=== PATIENT | female | born 1995 | race Caucasian/White ===

== ENCOUNTER → 2018-04-08 11:55 | Outpatient (CLI) | payer OTHER, SELFPAY ==
--- NOTE | 2018-04-08 | DI.RAD.S_ITS ---
PROCEDURE: XR HUMERUS LT 2V INDICATIONS: NEXPLANON JUE INSERTED, NON PALPABLE TECHNIQUE: 2 views of the humerus were acquired. COMPARISON: None. FINDINGS: Bones: No fractures or dislocations. No suspicious bony lesions. Soft tissues: 4.8 cm linear density projects in the distal soft tissues of the medial left upper extremity above the elbow IMPRESSION: Presumed implanted contraception device projects in the medial soft tissues of the left upper extremity above the elbow, approximately 7-8 cm above the elbow joint line Dictated by: Marcelo Jamison M.D. on 04/08/2018 at 13:51 Approved by: Marcelo Jamison M.D. on 04/08/2018 at 13:54
[2018-04-08 14:12] LABS: Alanine Aminotransferase 25 IU/L (9-52); Albumin 4.8 g/dL (3.5-5.0); Albumin Globulin Ratio 1.5 (1.0-2.8); Alkaline Phosphatase 72 U/L (38-126); Aspartate Aminotransferase 39 IU/L (14-36); BUN Creatinine Ratio 18.3 (6-22); Bilirubin Total 1.2 mg/dL (0.2-1.3); Blood Urea Nitrogen 11 mg/dL (7-17); Calcium 9.9 mg/dL (8.4-10.2); Carbon Dioxide 25 mmol/L (22-32); Chloride 106 mmol/L (98-107); Cholesterol 229 mg/dL (140-199); Estimated Glomerular Filt Rate > 60.0 mL/min (>60); Globulin 3.3 g/dL (1.7-4.1); Glucose 84 mg/dL (70-100); HDL Cholesterol 44 mg/dL (40-60); HEMOLYSIS < 15 (0-50); LDL Cholesterol Calculated 150 mg/dL (<100); Potassium 4.4 mmol/L (3.4-5.1); Sodium 144 mmol/L (137-145); Total Protein 8.1 g/dL (6.3-8.2); Triglycerides 176 mg/dL (35-150)
[2018-04-08 17:34] LABS: Add Manual Diff / Slide Review NO; Basophils Percent Auto 0.9 % (0-2); Eosinophils Percent Auto 1.8 % (2-4); Hematocrit 42.2 % (36-46); Hemoglobin 14.5 g/dL (12.0-16.0); Lymphocytes Percent Auto 24.4 % (25-40); Mean Corpuscular HGB Conc 34.4 % (30-36); Mean Corpuscular Hemoglobin 29.2 PG (26-34); Mean Corpuscular Volume 84.8 fL (80-100); Monocytes Percent Auto 5.2 % (3-14); Neutrophils Absolute Auto 8100 /uL (3000-5900); Neutrophils Percent Auto 67.7 % (50-75); Platelet Count 321 X10^3/uL (150-400); Red Blood Cell Count 4.98 X10^6/uL (4.0-5.2); White Blood Cell Count 11.9 X10^3/uL (4.5-11.0)
[2018-04-08 18:33] LABS: Hep C Virus Ab w/Reflex Quant NEGATIVE s/c (NEGATIVE)
== END ==
PROVIDERS: Visit Provider Nurse Practitioner Family
DX: Z30.49 Encounter for surveillance of other contraceptives (principal); Z13.1 Encounter for screening for diabetes mellitus; R53.83 Other fatigue; R00.2 Palpitations; Z91.89 Other specified personal risk factors, not elsewhere classified; Z13.89 Encounter for screening for other disorder
CPT/HCPCS: 36415; 73060; 80053; 80061; 83036; 84443; 85025; 86803

== ENCOUNTER 2018-05-13 11:27 | Day surgery (SDC) | payer OTHER, SELFPAY ==
[2018-05-12 09:04] VITALS: BMI 40.4
[2018-05-13 11:46] VITALS: BP 117/82; PULSE 77; RESP 16; TEMP 36.3; O2SAT 16; BMI 39.7
[2018-05-13] MEDS: LACTATED RINGERS 1,000 ML 100 ML IV (12:51)
--- NOTE | 2018-05-13 13:59 | PM.PREOP ---
Pre-operative Note Interval Note Pre-op Check: Yes History & Physical Reviewed by Physician and Yes Exam Performed Changes: No
[2018-05-13] MEDS: CEFAZOLIN 2 GM/100 ML FROZ.PIGGY IV (14:22)
--- NOTE | 2018-05-13 14:48 | SUR.OPER ---
Supine on padded OR bed, head on pillow, arms secured on padded arm boards at <90 degrees abduction, legs uncrossed, safety belt at thigh, tape over blanket over lower legs.
[2018-05-13] MEDS: BUPIVACAINE 0.5% W/ EPI (PF) VIAL 30 ML INJ (14:57)
--- NOTE | 2018-05-13 15:01 | PM.OP.1 ---
Operative Date/Time/Diagnoses Date of procedure: 05/13/18 Time of procedure: 15:01 Pre-op diagnosis: Foreign body in left upper arm(retained control device) Post-op diagnosis: same Procedure & Clinicians Procedure: Removal of foreign body Same procedure as scheduled: Yes Indications: Foreign body in the upper arm that causes patient pain Surgeon: Dawood Ocampo Click Yes if Unassisted: Yes Anesthesia Type: General Operative Notes Findings: Device removed in its entirety. Required fluoroscopic assistance to identify it and confirmed complete removal Closure Type: primary Specimen(s): none sent Implants & Drains: None Estimated Blood Loss (mL): 3 Procedure in detail: Patient was placed supine on the operating table underwent general LMA anesthesia. He was prepped and draped in usual fashion. Using a C-arm identified the location of the foreign body. An incision was made overlying the area and I easily identified and removed it. The wound was closed with interrupted 4 0 Vicryl subcuticular stitches and Steri-Strips. Dressing was applied patient tolerated the procedure well. she was awakened taken recovery room good condition Complications: none Condition: stable Disposition: PACU Plan for aftercare: Follow-up as needed
--- NOTE | 2018-05-13 15:04 | P.OP_ITS ---
Operative Date/Time/Diagnoses Date of procedure: 05/13/18 Time of procedure: 15:01 Pre-op diagnosis: Foreign body in left upper arm(retained control device) Post-op diagnosis: same Procedure & Clinicians Procedure: Removal of foreign body Same procedure as scheduled: Yes Indications: Foreign body in the upper arm that causes patient pain Surgeon: Dawood Ocampo Click Yes if Unassisted: Yes Anesthesia Type: General Operative Notes Findings: Device removed in its entirety. Required fluoroscopic assistance to identify it and confirmed complete removal Closure Type: primary Specimen(s): none sent Implants & Drains: None Estimated Blood Loss (mL): 3 Procedure in detail: Patient was placed supine on the operating table underwent general LMA anesthesia. He was prepped and draped in usual fashion. Using a C- arm identified the location of the foreign body. An incision was made overlying the area and I easily identified and removed it. The wound was closed with interrupted 4 0 Vicryl subcuticular stitches and Steri-Strips. Dressing was applied patient tolerated the procedure well. she was awakened taken recovery room good condition Complications: none Condition: stable Disposition: PACU Plan for aftercare: Follow-up as needed
[2018-05-13 15:08] VITALS: BP 115/74; PULSE 107; RESP 16; TEMP 37; O2SAT 96
[2018-05-13 15:13] VITALS: BP 122/79; PULSE 107; RESP 17; O2SAT 96
[2018-05-13 15:15] VITALS: BP 116/59; PULSE 88; RESP 17; TEMP 36.6; O2SAT 95
[2018-05-13 15:35] VITALS: BP 127/85; PULSE 82; RESP 16; TEMP 36.2; O2SAT 96
--- NOTE | 2018-05-13 17:19 | SUR.PHASEII ---
STABLE PHASE 2 ASKED TO LEAVE, DRESSED AND LEFT IN STABLE VONDITION.
== END 2018-05-13 15:36 | disposition home or self-care (01) ==
PROVIDERS: PCP Nurse Practitioner Family; Visit Provider Specialist
PROC: (CPT 11982; principal; 2018-05-13 13:15)
DX: M79.5 Residual foreign body in soft tissue (principal); Z45.89 Encounter for adjustment and management of other implanted devices
CPT/HCPCS: 11982; J0690; J1100; J2405; J2704; J3010

== ENCOUNTER → 2018-09-10 18:39 | Outpatient (REF) | payer OTHER, SELFPAY | LOC: LAB 18:39 | PROVIDERS: PCP Nurse Practitioner Family; Visit Provider Physician Assistant | DX: L08.9 Local infection of the skin and subcutaneous tissue, unspecified (principal) | CPT/HCPCS: 87070; 87075; 87205 ==

== ENCOUNTER → 2018-10-08 19:31 | Outpatient (REF) | payer OTHER, SELFPAY | LOC: LAB 19:31 | PROVIDERS: PCP Nurse Practitioner Family; Visit Provider Physician Assistant | DX: Z48.817 Encounter for surgical aftercare following surgery on the skin and subcutaneous tissue (principal) | CPT/HCPCS: 87070; 87075; 87077; 87147; 87205 ==